=== PATIENT | male | born 1965 | race Caucasian/White ===

== ENCOUNTER 2018-03-27 12:13 | Emergency (ER) | payer BC ==
--- NOTE | 2018-03-27 13:36 | EDM.PDOC ---
ED HPI GENERAL MEDICAL PROBLEM - General Chief Complaint: Skin Complaint Stated Complaint: LUMP ON RT SIDE OF NECK Time Seen by Provider: 03/27/18 13:20 Source of Information: Reports: Patient History Limitations: Reports: No Limitations - History of Present Illness INITIAL COMMENTS - FREE TEXT/NARRATIVE: 53 yo male presents with a several day hx of a scabbed over area on the R side of his neck with some enlarged and tender lymph nodes locally. 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 There has not been a fever. No hx of shingles. Is somewhat itchy. Is spreading. 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: Other (see below) (none) - Related Data Allergies Allergy/AdvReac Type Severity Reaction Status Date / Time Penicillins Allergy Cannot Verified 03/27/18 13:07 Remember Home Meds: Home Meds Sertraline HCl 1 tab PO DAILY 03/27/18 [History] cephALEXin [Cephalexin] 500 mg PO QID #30 tablet 03/27/18 [Rx] Past Medical History - Past Surgical History GI Surgical History: Reports: Appendectomy Social & Family History - Tobacco Use Smoking Status *Q: Current Every Day Smoker Years of Tobacco use: 30 Packs/Tins Daily: 1 ED ROS GENERAL - Review of Systems Review Of Systems: See Below Constitutional: Denies: Fever, Chills HEENT: Reports: Other (neck pain) Respiratory: Reports: No Symptoms Cardiovascular: Reports: No Symptoms GI/Abdominal: Reports: No Symptoms : Reports: No Symptoms Musculoskeletal: Reports: Neck Pain (R side) Skin: Reports: Pruritis, Rash, Erythema, Wound Neurological: Reports: No Symptoms ED EXAM, SKIN/RASH Exam: See Below Exam Limited By: No Limitations General Appearance: Alert, WD/WN, No Apparent Distress Eye Exam: Bilateral Eye: Normal Inspection Ears: Normal External Exam, Normal Canal, Hearing Grossly Normal Nose: Normal Inspection, Normal Mucosa, No Blood Throat/Mouth: Normal Inspection, Normal Lips, Normal Oropharynx, Normal Voice, No Airway Compromise Head: Atraumatic, Normocephalic Neck: Supple, Lymphadenopathy (R), Tender Lateral (R side of neck ant/ laterally. ). No: Limited Range of Motion Respiratory/Chest: No Respiratory Distress, Lungs Clear, Normal Breath Sounds, No Accessory Muscle Use Cardiovascular: Regular Rate, Rhythm, No Edema Extremities: Normal Inspection, Normal Range of Motion, Non-Tender, No Pedal Edema Neurological: Alert, Oriented, CN II-XII Intact, Normal Cognition, No Motor/ Sensory Deficits Psychiatric: Normal Affect, Normal Mood Skin: Warm, Rash, Wound/Incision (crusted area 2.5 x 2 cm to R ant/lat neck with some surrounding erythema and associated lymphadenopathy on that side only. ). No: Increased Warmth Location, Skin: Neck Characteristics: Erythematous Associated features: Tenderness, Inflammation Lymphatic: Adenopathy Course - Vital Signs Last Recorded V/S: Last Vital Signs Temp 36.1 C 03/27/18 13:12 Pulse Resp 14 03/27/18 13:12 BP 145/96 H 03/27/18 13:12 Pulse Ox 98 03/27/18 13:12 Departure - Departure Time of Disposition: 13:37 Disposition: Home, Self-Care 01 Condition: Fair Clinical Impression: Impetigo - Discharge Information *PRESCRIPTION DRUG MONITORING PROGRAM REVIEWED*: Not Applicable *COPY OF PRESCRIPTION DRUG MONITORING REPORT IN PATIENT LUIS: Not Applicable Prescriptions: cephALEXin [Cephalexin] 500 mg PO QID #30 tablet Instructions: Impetigo, Adult Referrals: Jose L Couch MD [Primary Care Provider] - Additional Instructions: Take cephalexin as directed. Keep area clean with soap and water. Use acetaminophen as needed for pain relief. Recheck with your provider in a couple days, call for an appt.
== END 2018-03-27 13:50 | disposition home or self-care (01) ==
LOC: JP.ED 12:13
DX: L01.00 Impetigo, unspecified (principal); F17.210 Nicotine dependence, cigarettes, uncomplicated; Z88.0 Allergy status to penicillin
CPT/HCPCS: 99283

== ENCOUNTER 2020-02-19 08:45 | Emergency (ER) | payer BC ==
--- NOTE | 2020-02-19 09:32 | EDM.PDOC ---
ED HPI GENERAL MEDICAL PROBLEM - General Chief Complaint: Neurological Problem Stated Complaint: DIZZY Time Seen by Provider: 02/19/20 09:29 Source of Information: Reports: Patient History Limitations: Reports: No Limitations - History of Present Illness INITIAL COMMENTS - FREE TEXT/NARRATIVE: pt arrived with a history of periods of confusion and feeling weak and doing alot of sweating. He feels like he is confused at this time. He works as a metal painter. 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 He has had 2 of these episodes today all ready. He states during the episodes he would not feel safe to drive. Onset: Gradual, Other ( These hav beengoing on for 3 monthes but much more recently. ) Duration: Hour(s): Location: Reports: Head, Generalized, Other (pt becomes very sweaty. ) Associated Symptoms: Reports: Confusion, Diaphoresis, Weakness - Related Data Allergies Allergy/AdvReac Type Severity Reaction Status Date / Time Penicillins Allergy Cannot Verified 02/19/20 08:57 Remember Home Meds: Home Meds Sertraline HCl 1 tab PO DAILY 03/27/18 [History] Tiotropium [Spiriva Handihaler] 1 dose IH DAILY 02/19/20 [History] Past Medical History HEENT History: Reports: Impaired Vision Psychiatric History: Reports: Anxiety - Past Surgical History Head Surgeries/Procedures: Reports: None HEENT Surgical History: Reports: None GI Surgical History: Reports: Appendectomy Dermatological Surgical History: Reports: None Social & Family History - Tobacco Use Smoking Status *Q: Current Every Day Smoker Years of Tobacco use: 30 Packs/Tins Daily: 1 Used Tobacco, but Quit: No - Caffeine Use Caffeine Use: Reports: None - Alcohol Use Days Per Week of Alcohol Use: 4 Number of Drinks Per Day: 6 Total Drinks Per Week: 24 - Recreational Drug Use Recreational Drug Use: No ED ROS GENERAL - Review of Systems Review Of Systems: See Below Constitutional: Reports: Weakness, Decreased Appetite HEENT: Reports: No Symptoms Respiratory: Reports: No Symptoms Cardiovascular: Reports: No Symptoms Endocrine: Reports: No Symptoms GI/Abdominal: Reports: No Symptoms Neurological: Reports: Confusion, Dizziness, Weakness Psychiatric: Reports: Anxiety ED EXAM, NEURO - Physical Exam Exam: See Below Text/Narrative:: pt arrived with ahistory of having episodes where he gets very dizzy and he has some confusion. He does become diaphoretic. He has no chest pain. He feels c onfused enough that he would not drive at the time. Exam Limited By: No Limitations General Appearance: Alert Ears: Normal TMs Nose: Normal Inspection Throat/Mouth: Normal Inspection Head Exam: Atraumatic Neck: Other (no carotid bruits) Respiratory/Chest: No Respiratory Distress Cardiovascular: Regular Rate, Rhythm GI/Abdominal: Soft, Non-Tender (Male) Exam: Deferred Rectal (Males) Exam: Deferred Neurological: Alert, Oriented x 3, Other (pt did have one of the episodes while she was hre. All vital signs looked and his hall monitor did not change. ) Back Exam: Normal Inspection Psychiatric: Anxious Course - Vital Signs Last Recorded V/S: Last Vital Signs Temp 36.2 C 02/19/20 09:02 Pulse 58 L 02/19/20 09:55 Resp 14 02/19/20 09:55 BP 123/80 02/19/20 09:55 Pulse Ox 98 02/19/20 09:55 - Orders/Labs/Meds Labs: Laboratory Tests 02/19/20 02/19/20 02/19/20 Range/Units 09:14 09:14 09:35 WBC 5.5 (4.5-11.0) K/uL RBC 4.93 (4.30-5.90) M/uL Hgb 15.6 H (12.0-15.0) g/dL Hct 48.0 (40.0-54.0) % MCV 97 (80-98) fL MCH 32 H (27-31) pg MCHC 33 (32-36) % Plt Count 171 (150-400) K/uL Neut % (Auto) 73 H (36-66) % Lymph % (Auto) 18 L (24-44) % [place] % (Auto) 7 H (2-6) % Eos % (Auto) 1 L (2-4) % Baso % (Auto) 0 (0-1) % Sodium 141 (140-148) mmol/L Potassium 4.4 (3.6-5.2) mmol/L Chloride 105 (100-108) mmol/L Carbon Dioxide 26 (21-32) mmol/L Anion Gap 9.6 (5.0-14.0) mmol/L BUN 13 (7-18) mg/dL Creatinine 1.0 (0.8-1.3) mg/dL Est Cr Clr Drug Dosing 90.53 mL/min Estimated GFR (MDRD) > 60 (>60) Glucose 110 H (74-106) mg/dL Calcium 8.5 (8.5-10.1) mg/dL Total Bilirubin 0.6 (0.2-1.0) mg/dL AST 26 (15-37) U/L ALT 36 (12-78) U/L Alkaline Phosphatase 101 (46-116) U/L Total Protein 7.1 (6.4-8.2) g/dL Albumin 3.5 (3.4-5.0) g/dL Globulin 3.6 H (2.3-3.5) g/dL Albumin/Globulin Ratio 1.0 L (1.2-2.2) Vitamin B12 (193-986) pg/ml Folate (8.6-58.9) ng/ml Urine Color (YELLOW) Urine Appearance (CLEAR) Urine pH (5.0-8.0) Ur Specific [place] (1.008-1.030) Urine Protein (NEGATIVE) mg/dL Urine Glucose (UA) (NEGATIVE) mg/dL Urine Ketones (NEGATIVE) mg/dL Urine Occult Blood (NEGATIVE) Urine Nitrite (NEGATIVE) Urine Bilirubin (NEGATIVE) Urine Urobilinogen (0.2-1.0) EU/dL Ur Leukocyte Esterase (NEGATIVE) Urine RBC (0-5) Urine WBC (0-5) Ur Epithelial Cells Amorphous Sediment Urine Bacteria Urine Mucus Urine Opiates Screen (NEGATIVE) Ur Oxycodone Screen (NEGATIVE) Urine Methadone Screen (NEGATIVE) Ur Propoxyphene Screen (NEGATIVE) Ur Barbiturates Screen (NEGATIVE) Ur Tricyclics Screen (NEGATIVE) Ur Phencyclidine Scrn (NEGATIVE) Ur Amphetamine Screen (NEGATIVE) U Methamphetamines Scrn (NEGATIVE) Urine MDMA Screen (NEGATIVE) U Benzodiazepines Scrn (NEGATIVE) U Cocaine Metab Screen (NEGATIVE) U Marijuana (THC) Screen (NEGATIVE) Ethyl Alcohol 4 mg/dL 02/19/20 02/19/20 02/19/20 Range/Units 09:39 09:40 09:41 WBC (4.5-11.0) K/uL RBC (4.30-5.90) M/uL Hgb (12.0-15.0) g/dL Hct (40.0-54.0) % MCV (80-98) fL MCH (27-31) pg MCHC (32-36) % Plt Count (150-400) K/uL Neut % (Auto) (36-66) % Lymph % (Auto) (24-44) % [place] % (Auto) (2-6) % Eos % (Auto) (2-4) % Baso % (Auto) (0-1) % Sodium (140-148) mmol/L Potassium (3.6-5.2) mmol/L Chloride (100-108) mmol/L Carbon Dioxide (21-32) mmol/L Anion Gap (5.0-14.0) mmol/L BUN (7-18) mg/dL Creatinine (0.8-1.3) mg/dL Est Cr Clr Drug Dosing mL/min Estimated GFR (MDRD) (>60) Glucose (74-106) mg/dL Calcium (8.5-10.1) mg/dL Total Bilirubin (0.2-1.0) mg/dL AST (15-37) U/L ALT (12-78) U/L Alkaline Phosphatase (46-116) U/L Total Protein (6.4-8.2) g/dL Albumin (3.4-5.0) g/dL Globulin (2.3-3.5) g/dL Albumin/Globulin Ratio (1.2-2.2) Vitamin B12 359 (193-986) pg/ml Folate 18.9 (8.6-58.9) ng/ml Urine Color Yellow (YELLOW) Urine Appearance Clear (CLEAR) Urine pH 5.5 (5.0-8.0) Ur Specific [place] >= 1.030 (1.008-1.030) Urine Protein Negative (NEGATIVE) mg/dL Urine Glucose (UA) Negative (NEGATIVE) mg/dL Urine Ketones Negative (NEGATIVE) mg/dL Urine Occult Blood Negative (NEGATIVE) Urine Nitrite Negative (NEGATIVE) Urine Bilirubin Negative (NEGATIVE) Urine Urobilinogen 0.2 (0.2-1.0) EU/dL Ur Leukocyte Esterase Negative (NEGATIVE) Urine RBC 0-5 (0-5) Urine WBC 0-5 (0-5) Ur Epithelial Cells Few Amorphous Sediment Not seen Urine Bacteria Few Urine Mucus Few Urine Opiates Screen (NEGATIVE) Ur Oxycodone Screen (NEGATIVE) Urine Methadone Screen (NEGATIVE) Ur Propoxyphene Screen (NEGATIVE) Ur Barbiturates Screen (NEGATIVE) Ur Tricyclics Screen (NEGATIVE) Ur Phencyclidine Scrn (NEGATIVE) Ur Amphetamine Screen (NEGATIVE) U Methamphetamines Scrn (NEGATIVE) Urine MDMA Screen (NEGATIVE) U Benzodiazepines Scrn (NEGATIVE) U Cocaine Metab Screen (NEGATIVE) U Marijuana (THC) Screen (NEGATIVE) Ethyl Alcohol mg/dL 02/19/20 Range/Units 09:41 WBC (4.5-11.0) K/uL RBC (4.30-5.90) M/uL Hgb (12.0-15.0) g/dL Hct (40.0-54.0) % MCV (80-98) fL MCH (27-31) pg MCHC (32-36) % Plt Count (150-400) K/uL Neut % (Auto) (36-66) % Lymph % (Auto) (24-44) % [place] % (Auto) (2-6) % Eos % (Auto) (2-4) % Baso % (Auto) (0-1) % Sodium (140-148) mmol/L Potassium (3.6-5.2) mmol/L Chloride (100-108) mmol/L Carbon Dioxide (21-32) mmol/L Anion Gap (5.0-14.0) mmol/L BUN (7-18) mg/dL Creatinine (0.8-1.3) mg/dL Est Cr Clr Drug Dosing mL/min Estimated GFR (MDRD) (>60) Glucose (74-106) mg/dL Calcium (8.5-10.1) mg/dL Total Bilirubin (0.2-1.0) mg/dL AST (15-37) U/L ALT (12-78) U/L Alkaline Phosphatase (46-116) U/L Total Protein (6.4-8.2) g/dL Albumin (3.4-5.0) g/dL Globulin (2.3-3.5) g/dL Albumin/Globulin Ratio (1.2-2.2) Vitamin B12 (193-986) pg/ml Folate (8.6-58.9) ng/ml Urine Color (YELLOW) Urine Appearance (CLEAR) Urine pH (5.0-8.0) Ur Specific [place] (1.008-1.030) Urine Protein (NEGATIVE) mg/dL Urine Glucose (UA) (NEGATIVE) mg/dL Urine Ketones (NEGATIVE) mg/dL Urine Occult Blood (NEGATIVE) Urine Nitrite (NEGATIVE) Urine Bilirubin (NEGATIVE) Urine Urobilinogen (0.2-1.0) EU/dL Ur Leukocyte Esterase (NEGATIVE) Urine RBC (0-5) Urine WBC (0-5) Ur Epithelial Cells Amorphous Sediment Urine Bacteria Urine Mucus Urine Opiates Screen Negative (NEGATIVE) Ur Oxycodone Screen Negative (NEGATIVE) Urine Methadone Screen Negative (NEGATIVE) Ur Propoxyphene Screen Negative (NEGATIVE) Ur Barbiturates Screen Negative (NEGATIVE) Ur Tricyclics Screen Negative (NEGATIVE) Ur Phencyclidine Scrn Negative (NEGATIVE) Ur Amphetamine Screen Negative (NEGATIVE) U Methamphetamines Scrn Negative (NEGATIVE) Urine MDMA Screen Negative (NEGATIVE) U Benzodiazepines Scrn Negative (NEGATIVE) U Cocaine Metab Screen Negative (NEGATIVE) U Marijuana (THC) Screen Presumptive positive H (NEGATIVE) Ethyl Alcohol mg/dL Meds: Medications Discontinued Medications Generic Name Dose Route Start Last Admin Trade Name Freq PRN Reason Stop Dose Admin Sodium Chloride 1,000 mls @ 999 mls/hr 02/19/20 10:00 02/19/20 10:13 Normal Saline IV 999 mls/hr ASDIRECTED DUDLEY Administration Sodium Chloride 100 mls @ 3.5 mls/sec 02/19/20 11:00 02/19/20 11:20 Normal Saline IV 02/19/20 11:01 3.5 mls/sec ASDIRECTED DUDLEY Administration Iopamidol 100 ml 02/19/20 11:00 02/19/20 11:20 Isovue-370 (76%) IV 02/19/20 11:01 100 ml . DIRECTED DUDLEY Administration Sodium Chloride 10 ml 02/19/20 10:53 02/19/20 11:20 Saline Flush FLUSH 02/19/20 10:54 10 ml ONETIME ONE Administration - Re-Assessments/Exams Free Text/Narrative Re-Assessment/Exam: 02/19/20 12:37 pt had normal lab work. He had a cat scan of the head which did not show acute findings. He also had a cta of the head and neck which did not reveal occlusive disease. Pt admits to drinking at least 4 days a week a 12 pack of beer. He also is using alot of marjauna He will be advised to cut back. 02/19/20 12:40 pt did have one of the episodes while he was here. He was on the hall monitor and that was good. His bp remained stable . His o2 sats were stable. 02/19/20 12:46 Departure - Departure Time of Disposition: 12:30 Disposition: Home, Self-Care 01 Condition: Fair Clinical Impression: Episode of confusion - Discharge Information Instructions: Confusion Referrals: PCP,None [Primary Care Provider] - Forms: ED Department Discharge Care Plan Goals: you had a normal cat scan of the head. A cta of the head and neck was done which did not reveal a vasular occlusion, appt in follow up with Dr Clifton, Pt needs a referal to neurology, suggest decreasing the beer intake which is quite heavy and decreasing the marajauna. rtc if this should get worse. Sepsis Event Note (ED) - Evaluation Sepsis Screening Result: No Definite Risk
[2020-02-19] MEDS ORDERED: Sodium Chloride 0.9% 1,000 ML IV SCH (10:00)
--- NOTE | 2020-02-19 10:17 | CT ---
Head wo Cont CLINICAL HISTORY: Confusion COMPARISON: None TECHNIQUE: Transverse scans were obtained from the base of the skull through the vertex without IV contrast on a multislice, multidetector CT scanner. Auto dosage reduction and iterative reconstruction techniques employed. FINDINGS: No focal abnormal parenchymal density is identified. There is no mass effect, hemorrhage, or extraaxial collection. The basal cisterns and sulci over the convexities are normal. The ventricles are normal for age. IMPRESSION: No acute intracranial process
[2020-02-19] MEDS ORDERED: Sodium Chloride 0.9% 10 ML Syringe FLUSH ONE (10:53)
[2020-02-19] MEDS ORDERED: Iopamidol 755 Mg/ML 100 ML Bottle IV SCH (11:00)
[2020-02-19] MEDS ORDERED: Sodium Chloride 0.9% 100 ML IV SCH (11:00)
--- NOTE | 2020-02-19 11:53 | CT ---
Ang Head, Ang Neck CLINICAL HISTORY: Confusion and dizziness. COMPARISON: None TECHNIQUE: Multiple volume rendered and MIP 3D reconstructions were generated from source images obtained on a spiral scanner before and after intravenous iodinated contrast enhancement Auto dosage reduction and iterative reconstruction techniques employed. FINDINGS: Internal carotid arteries: Normal course and contour Anterior cerebral arteries: Normal course and contour. There is a patent anterior communicating artery Middle cerebral arteries: Normal course and contour Posterior cerebral arteries: Normal course and contour Vertebral/basilar arteries: There is an atretic right vertebral artery. IMPRESSION: Very small right vertebral artery. No evidence of aneurysm or significant stenosis There is some minimal plaque in the left carotid bifurcation with some central calcification. There is no significant stenosis of the internal carotid artery. Impression: Very small right vertebral artery Minimal plaque left carotid bifurcation with no ICA stenosis Ang Head, Ang Neck CLINICAL HISTORY: Confusion and marked dizziness TECHNIQUE: Multiple axial images were obtained through the neck without and with the IV infusion of iodinated contrast. From these images sagittal, coronal, and 3D reconstructions of the aortic arch and carotids were obtained and viewed on a dedicated and independent workstation. NASCET criteria is used. Auto dosage reduction and iterative reconstruction techniques employed. FINDINGS: The proximal brachycephalic vessels have a normal course and contour. There is a very small right vertebral artery. IMPRESSION:
== END 2020-02-19 12:43 | disposition home or self-care (01) ==
LOC: JP.ED 08:45
DX: R41.0 Disorientation, unspecified (principal); F41.9 Anxiety disorder, unspecified; F17.210 Nicotine dependence, cigarettes, uncomplicated; Z88.0 Allergy status to penicillin; Z79.899 Other long term (current) drug therapy
CPT/HCPCS: 36415; 70450; 70496; 70498; 80053; 80305; 80307; 81001; 82607; 82746; 85025; 96360; 99285; J7030; J7050; Q9967; 99283

== ENCOUNTER 2021-02-28 10:38 | Emergency (ER) | payer BC ==
--- NOTE | 2021-02-28 11:02 | EDM.PDOC ---
ED HPI GENERAL MEDICAL PROBLEM - General Chief Complaint: Neurological Problem Stated Complaint: SEIZURES Time Seen by Provider: 02/28/21 10:54 Source of Information: Reports: Patient, Family, RN Notes Reviewed History Limitations: Reports: No Limitations - History of Present Illness INITIAL COMMENTS - FREE TEXT/NARRATIVE: 56-year-old gentleman presents emergency department day complaint of breakthrough seizures, he has a known seizure disorder from what he describes it sounds like a [place] type. This is usually controlled with Keppra he follows with neurology at the [facility] recently had his levels checked he states they were therapeutic. However over the last couple of days he has had some breakthrough seizures or what he describes as problems with v ision gets confused foggy and then has gait instability. These episodes last anywhere from 15 minutes to an hour and then will spontaneously resolve. He describes 3 episodes this morning. He did contact his neurologist and neurology asked him to report to the emergency department for further evaluation and in contact neurology direct - Related Data Allergies Allergy/AdvReac Type Severity Reaction Status Date / Time Penicillins Allergy Cannot Verified 02/28/21 10:44 Remember Home Meds: Home Meds Sertraline HCl 50 mg PO BEDTIME 03/27/18 [History] Tiotropium [Spiriva Handihaler] 2 dose IH DAILY 02/19/20 [History] levETIRAcetam [Keppra] 1,500 mg PO ASDIRECTED 02/28/21 [History] levETIRAcetam [Keppra] 750 mg PO BEDTIME 02/28/21 [History] levETIRAcetam [Keppra] 750 mg PO DAILY 02/28/21 [History] Past Medical History HEENT History: Reports: Impaired Vision Neurological History: Reports: Seizure Psychiatric History: Reports: Anxiety - Past Surgical History Head Surgeries/Procedures: Reports: None HEENT Surgical History: Reports: None GI Surgical History: Reports: Appendectomy Dermatological Surgical History: Reports: None Social & Family History - Tobacco Use Tobacco Use Status *Q: Current Every Day Tobacco User Years of Tobacco use: 30 Packs/Tins Daily: 1 - Caffeine Use Caffeine Use: Reports: None - Alcohol Use Days Per Week of Alcohol Use: 4 Number of Drinks Per Day: 5 Total Drinks Per Week: 20 - Recreational Drug Use Recreational Drug Use: Yes Recreational Drug Type: Reports: Marijuana/Hashish Recreational Drug Use Frequency: Daily ED ROS GENERAL - Review of Systems Review Of Systems: See Below Constitutional: Reports: No Symptoms Respiratory: Reports: No Symptoms Cardiovascular: Reports: Chest Pain (Episode of chest pain yesterday) GI/Abdominal: Reports: No Symptoms Neurological: Reports: Seizure ED EXAM, NEURO - Physical Exam Exam: See Below Exam Limited By: No Limitations General Appearance: Alert, WD/WN, No Apparent Distress Respiratory/Chest: No Respiratory Distress, Lungs Clear, Normal Breath Sounds, No Accessory Muscle Use, Chest Non-Tender Cardiovascular: Regular Rate, Rhythm, No Murmur GI/Abdominal: Soft, Non-Tender Neurological: Alert, Normal Mood/Affect, No Motor/Sensory Deficits #1 Interpretation EKG Date: 02/28/21 Time: 11:39 Rhythm: NSR [place]: Normal P-Wave: Present QRS: Normal ST-T: Normal QT: Normal Comparison: NA - No Prior EKG Course - Vital Signs Last Recorded V/S: Last Vital Signs Temp 97.1 F 02/28/21 10:51 Pulse 62 02/28/21 10:51 Resp 13 02/28/21 10:51 BP 141/92 H 02/28/21 10:51 Pulse Ox 93 L 02/28/21 10:51 - Orders/Labs/Meds Orders: Active Orders 24 hr Category Date Time Status EKG Documentation Completion [RC] ASDIRECTED Care 02/28/21 10:59 Active Chest 2V [CR] Stat Exams 02/28/21 10:58 Taken LEVETIRACETAM (KEPPRA), S Urgent Lab 02/28/21 11:47 Ordered EKG 12 Lead [EK] Stat Ther 02/28/21 10:58 Ordered Labs: Laboratory Tests 02/28/21 02/28/21 02/28/21 Range/Units 11:08 11:08 11:08 WBC 5.2 (4.5-11.0) K/uL RBC 4.76 (4.30-5.90) M/uL Hgb 15.7 H (12.0-15.0) g/dL Hct 46.4 (40.0-54.0) % MCV 98 (80-98) fL MCH 33 H (27-31) pg MCHC 34 (32-36) % Plt Count 202 (150-400) K/uL Neut % (Auto) 59.3 (36-66) % Lymph % (Auto) 30.8 (24-44) % [place] % (Auto) 7.9 H (2-6) % Eos % (Auto) 1.4 L (2-4) % Baso % (Auto) 0.6 (0-1) % Sodium 139 L (140-148) mmol/L Potassium 4.8 (3.6-5.2) mmol/L Chloride 106 (100-108) mmol/L Carbon Dioxide 27 (21-32) mmol/L Anion Gap 10.8 (5.0-14.0) mmol/L BUN 13 (7-18) mg/dL Creatinine 1.0 (0.8-1.3) mg/dL Est Cr Clr Drug Dosing 92.11 mL/min Estimated GFR (MDRD) > 60 (>60) Glucose 93 (74-106) mg/dL Lactic Acid 0.8 (0.4-2.0) mmol/L Calcium 8.7 (8.5-10.1) mg/dL Total Bilirubin 0.5 (0.2-1.0) mg/dL AST 27 (15-37) U/L ALT 33 (12-78) U/L Alkaline Phosphatase 105 (46-116) U/L Troponin I < 0.017 (0.000-0.056) ng/mL Total Protein 6.9 (6.4-8.2) g/dL Albumin 3.4 (3.4-5.0) g/dL Globulin 3.5 (2.3-3.5) g/dL Albumin/Globulin Ratio 1.0 L (1.2-2.2) Departure - Departure Time of Disposition: 11:49 Disposition: Home, Self-Care 01 Condition: Fair Clinical Impression: Seizure-like activity - Discharge Information Instructions: Seizure, Adult, [id number] Referrals: August Clifton MD [Primary Care Provider] - Forms: ED Department Discharge Additional Instructions: Continue with your regular medications, please keep in touch with your neurologist for future appointment time for an elective admission for seizure evaluation call or return to the emergency department worsening of symptoms Sepsis Event Note (ED) - Evaluation Sepsis Screening Result: No Definite Risk - Focused Exam Vital Signs: Vital Signs Temp Pulse Resp BP Pulse Ox 02/28/21 10:51 97.1 F 62 13 141/92 H 93 L - My Orders Last 24 Hours: My Active Orders 02/28/21 10:58 Chest 2V [CR] Stat EKG 12 Lead [EK] Stat 02/28/21 10:59 EKG Documentation Completion [RC] ASDIRECTED 02/28/21 11:47 LEVETIRACETAM (KEPPRA), S Urgent - Assessment/Plan Last 24 Hours: My Active Orders 02/28/21 10:58 Chest 2V [CR] Stat EKG 12 Lead [EK] Stat 02/28/21 10:59 EKG Documentation Completion [RC] ASDIRECTED 02/28/21 11:47 LEVETIRACETAM (KEPPRA), S Urgent Plan: Assessment Acuity = acute Site and laterality = atypical seizure-like activity Etiology = unknown Manifestations = none Location of injury = Home Lab values = CBC, CMP, troponin all within normal limits EKG demonstrates a normal sinus rhythm, chest x-ray reveals no acute process official read radiologist pending Plan Call discussed the case with Dr. Calderon neurologist [facility], he would like to bring the patient in for an elective admission to do a more extensive seizure work-up. I did discuss this with the patient they will be in contact with their neurologist for further evaluation, Keppra level was drawn but the results are not available at this time This note was dictated using [employer] voice recognition software please call with any questions on syntax or grammar.
--- NOTE | 2021-02-28 12:17 | CR ---
CHEST: 2 view CLINICAL HISTORY:Chest pain COMPARISON:None FINDINGS: Lungs are hyperaerated. Heart and pulmonary vascular normal. There is a nodular density in the right upper hilum. This is likely some normal vasculature. There is a moderate compression deformity of T7 and to a lesser degree T6. CHRONOLOGY IS UNCERTAIN IMPRESSION: No acute cardiac pulmonary process Emphysematous changes Nodular density in the right upper hilum. This is likely vasculature. Comparison with prior studies would be helpful. If they can be made available an addendum report will be issued. If there are no prior studies short-term follow-up versus CT chest recommended On a nonacute basis.
== END 2021-02-28 12:02 | disposition home or self-care (01) ==
LOC: JP.ED 10:38
DX: R56.9 Unspecified convulsions (principal); Z72.0 Tobacco use; Z88.0 Allergy status to penicillin; Z79.899 Other long term (current) drug therapy
CPT/HCPCS: 36415; 71046; 71046-26; 80053; 80177; 83605; 84484; 85025; 93005; 99284-25

== ENCOUNTER 2022-04-14 06:01 | Emergency (ER) | payer BC ==
[2022-04-14 06:50] LABS: ESTIMATED GFR 78 mL/min (>60)
== END 2022-04-14 07:24 | disposition home or self-care (01) ==
LOC: JP.ED 06:01
DX: U07.1 COVID-19 (principal); Z88.0 Allergy status to penicillin
CPT/HCPCS: 36415; 71045; 80053; 83605; 85025; 86140; 99283; U0002

== ENCOUNTER → 2023-09-23 | Day surgery (SDC) | payer MEDICARE, MEDICAID ==
[~2023-09-23] MED LIST: Midazolam 1 MG/ML 2 ML SDV ONE; Propofol 200 MG/20 ML SDV ONE; Sodium Chloride 0.9% 1,000 ML IV SCH; fentaNYL 100 MCG/2 ML SDV ONE
== END ==
LOC: JP.SDS 07:24
PROVIDERS: ATTEND Surgery
DX: Z12.11 Encounter for screening for malignant neoplasm of colon (principal); D12.4 Benign neoplasm of descending colon; D12.5 Benign neoplasm of sigmoid colon; J45.909 Unspecified asthma, uncomplicated
CPT/HCPCS: 45380; 45385; J2250; J2704; J3010; 88305

== ENCOUNTER 2025-08-07 19:30 | Emergency (ER) | payer MEDICARE, BC ==
[2025-08-07 20:40] LABS: BASOPHILS ABSOLUTE AUTO 0.03 K/uL (0.00-0.10); BASOPHILS PERCENT AUTO 0.5 % (0.1-1.3); EOSINOPHILS ABSOLUTE AUTO 0.17 K/uL (0.00-0.40); EOSINOPHILS PERCENT AUTO 2.8 % (0.0-5.4); IMMATURE GRAN ABSOLUTE AUTO 0.06 K/uL (0.00-0.23); IMMATURE GRAN PERCENT AUTO 1.0 % (0.0-0.7); LYMPHOCYTES ABSOLUTE AUTO 0.49 K/uL (0.8-3.3); LYMPHOCYTES PERCENT AUTO 8.1 % (11.4-47.7); MONOCYTES ABSOLUTE AUTO 0.47 K/uL (0.20-0.90); MONOCYTES PERCENT AUTO 7.8 % (3.3-12.6); NEUTROPHILS ABSOLUTE AUTO 4.81 K/uL (1.0-7.6); NEUTROPHILS PERCENT AUTO 79.8 % (40.0-78.1); PLATELET COUNT,PLT 212 K/uL (130-375); RED BLOOD CELL COUNT 4.87 M/uL (4.14-5.76); WHITE BLOOD CELL COUNT,WBC 6.0 K/uL (3.2-11.0)
[2025-08-07 21:01] LABS: A/G RATIO 0.9 (1.2-2.2); ALANINE AMINOTRANSFERASE,ALT 34 U/L (12-78); ASPARTATE AMNIOTRANSFERASE,AST 29 U/L (15-37); BILIRUBIN TOTAL 0.7 mg/dL (0.2-1.0); BLOOD UREA NITROGEN,BUN 17 mg/dL (7-18); CARBON DIOXIDE,CO2 25 mmol/L (21-32); CHLORIDE,CL 101 mmol/L (100-108); CREATININE 1.2 mg/dL (0.8-1.3); EST CRCL DRUG DOSING (CG) 75.16 mL/min; ESTIMATED GFR 69 mL/min (>60); GLUCOSE RANDOM 115 mg/dL (74-106); POTASSIUM,K 4.0 mmol/L (3.6-5.2); PROTEIN TOTAL,TP 7.5 g/dL (6.4-8.2); SODIUM,NA 136 mmol/L (140-148)
[2025-08-07 21:02] LABS: CORONAVIRUS COVID-19 NAA NEGATIVE (NEGATIVE); INFLUENZA A NAA POSITIVE (NEGATIVE); INFLUENZA B NAA NEGATIVE (NEGATIVE); RESPIRATORY SYNCYTIAL VIR NAA NEGATIVE (NEGATIVE)
[2025-08-07 21:35] LABS: APPEARANCE,URINE CLEAR (CLEAR); GLUCOSE,URINE NEGATIVE (NEGATIVE); OCCULT BLOOD,URINE NEGATIVE (NEGATIVE)
[2025-08-07 21:41] LABS: SQUAMOUS EPITHELIAL CELLS,UR NOT SEEN /HPF; UROTHELIAL CELLS,URINE NOT SEEN /HPF
== END 2025-08-07 22:36 | disposition home or self-care (01) ==
LOC: JP.ED 19:30
DX: J10.1 Influenza due to other identified influenza virus with other respiratory manifestations (principal); E86.0 Dehydration; F17.200 Nicotine dependence, unspecified, uncomplicated; J45.909 Unspecified asthma, uncomplicated; Z88.0 Allergy status to penicillin; Z88.8 Allergy status to other drugs, medicaments and biological substances; Z79.899 Other long term (current) drug therapy; Z90.49 Acquired absence of other specified parts of digestive tract
CPT/HCPCS: 36415; 71045; 80053; 81001; 85025; 87637; 96360; 99285; A9270; J7030